=== PATIENT | male | born 2000 | race Two or more races ===

== ENCOUNTER → 2025-06-19 | Emergency (ER) | payer MEDICAID, OTHER ==
[~2025-06-19] VITALS: Ht 170.2 cm; Wt 59.4 kg
[~2025-06-19] MED LIST: ACETAMINOPHEN 325 MG TABLET PO ONE; KETOROLAC TROMETHAMINE 15 MG/ML VIAL IM ONE
[2025-06-19 17:59] VITALS: TEMP 97.7
[2025-06-19 18:34] VITALS: BP 110/78; O2SAT 97
== END ==
LOC: ER 18:08
DX: S01.81XA Laceration without foreign body of other part of head, initial encounter (principal); W22.8XXA Striking against or struck by other objects, initial encounter; Y93.89 Activity, other specified; Y92.89 Other specified places as the place of occurrence of the external cause; Y99.8 Other external cause status
CPT/HCPCS: 99283; A6403